=== PATIENT | male | born 1940 | race Caucasian/White ===

== ENCOUNTER 2016-11-26 12:35 | Emergency (ER) | payer MEDICARE | END 2016-11-26 17:29 | disposition home or self-care (01) | LOC: D.ER 12:35 | DX: R41.82 Altered mental status, unspecified (principal); F03.90 Unspecified dementia, unspecified severity, without behavioral disturbance, psychotic disturbance, mood disturbance, and anxiety; F17.200 Nicotine dependence, unspecified, uncomplicated ==

== ENCOUNTER 2016-11-26 18:27 | Inpatient (IN) | payer MEDICARE ==
[~2016-11-26] VITALS: Ht 175.3 cm; Wt 75.0 kg
--- NOTE | ~2016-11-26 | PN ---
PATIENT:ACE PANDYA MEDICAL RECORD: [id number] LOCATION:[facility] ADMISSION DATE: 11/26/16 PROGRESS NOTE DATE OF SERVICE: 12/07/2016 SUBJECTIVE: The patient's case was discussed with staff. He has no new complaint. OBJECTIVE: The patient is in good behavioral control with limited insight about his condition. He tolerates his medicines well. ASSESSMENT: No change in diagnoses. PLAN: Brief supportive and educational interventions were made. Prison prognosis is guarded. TRANSINT:[id number] Voice Confirmation ID: [id number] DOCUMENT ID: [id number] CLEMENTE SANCHEZ MD CC: [id number] DICTATION DATE: 12/07/16 1343 INVESTOR RELATIONS MANAGER: 12/07/16 1421 ADM IN [place] [id number] [place] [id number]
[~2016-11-26 18:27] MED LIST: ARICEPT10 MG PO; CELEXA20 MG PO; LEVAQUIN750 MG PO; MUCINEX600 MG PO; PROAIR HFA8.5 GM INH; TERAZOSIN HCL2 MG PO
--- NOTE | 2016-11-26 20:45 | NUR ---
PATIENT FAMILY HERE TO SIGNS ADMIT CONSENTS. FAMILY STATES PATIENTS IS A DNR BUT THEY DO NOT HAVE PAPERWORK WITH THEM. REQUEST A COPY FROM FAMILY.
[2016-11-26 20:50] VITALS: BP 123/77
[2016-11-26 21:17] VITALS: BP 123/77
--- NOTE | 2016-11-26 21:24 | NUR ---
RECEIVED STANDING QUIETLY AT NURSES STATION. CONFUSED. CALM AND COOPERATIVE WITH CARE AND ASSESSMENTS. NO SIGNS OF AGGRESSION. REDIRECT AND REORIENT NEEDED. CONTINUES TO REST INN BED QUIETLY AT THIS TIME. CONTINUE PLAN OF CARE
[2016-11-27 07:00] VITALS: BP 110/74
[2016-11-27 07:27] LABS: LDL-HDL RATIO 1.9 ratio (1.5-3.5); THYROID STIMULATING HORMONE 1.74 uIU/mL (0.36-3.74)
[2016-11-27 11:03] LABS: APPEARANCE CLEAR (CLEAR); BILIRUBIN NEGATIVE (NEGATIVE); COLOR YELLOW (YELLOW); GLUCOSE NEGATIVE (NEGATIVE); KETONE NEGATIVE (NEGATIVE); LEUKOCYTE ESTERASE NEGATIVE (NEGATIVE); NITRITE NEGATIVE (NEGATIVE); PROTEIN NEGATIVE (NEGATIVE); SPECIFIC GRAVITY 1.015 (1.005-1.020); UROBILINOGEN NORMAL (NORMAL)
--- NOTE | 2016-11-27 12:00 | NUR ---
ASSESSMENT COMPLETED. MEDICATION COMPLIANT. CONTINUE PLAN OF CARE.
[2016-11-27 13:59] VITALS: BMI 24.3
[2016-11-27 19:31] VITALS: BP 112/59
--- NOTE | 2016-11-27 23:22 | NUR ---
RECIEVED IN DAYROOM. SITTING IN RECLINER. SOCIALIZING WITH PEERS AND STAFF. [facility] AMBULATES. EXIT SEEKING. STATING THAT HE WANTS TO LEAVE. TAKING OFFENSIVE POSTURE AT TIMES. NO AGGRESSION NOTED AT THIS TIME. CALM AND COOPERATIVE [facility] CARE AND ASSESSMENT. REDIRECT AND REORIENT NEEDED. RESTING IN BED WITH EYES CLOSED AT THIS TIME. CONTINUE PLAN OF CARE.
[2016-11-28 07:25] LABS: VITAMIN D 25 HYDROXY 20.3 ng/mL (30.0-100.0)
[2016-11-28 08:17] LABS: FOLATE (FOLIC ACID) - SERUM 17.2 ng/mL (>3.0)
[2016-11-28 09:21] VITALS: BP 102/71
[2016-11-28 10:37] VITALS: Ht 175.3 cm; Wt 75.0 kg
[2016-11-28 11:16] LABS: RAPID PLASMA REAGIN Reactive (Non Reactive); TREPONEMA PALLIDUM AB Negative (Negative)
--- NOTE | 2016-11-28 11:44 | NUR ---
oriented to person only. pt has difficulty falling simple instruction. pt is restless and paces the unit, but he has not shown any exit seeking behaviors today. no aggression noted. medications given as ordered. fall precautions maintained. will continue to monitor and continue with plan of care.
--- NOTE | 2016-11-28 14:04 | PSY ---
PATIENT NAME:ACE PANDYA MEDICAL RECORD: [id number] : 40 LOCATION:[facility] ADMISSION DATE: 11/26/16 ACCOUNT: [id number] PSYCHIATRIC EVALUATION DATE OF EVALUATION: 11/27/16 IDENTIFYING DATA: The patient is 76 years old and he is admitted to the hospital on a voluntary basis. CHIEF COMPLAINT: Aggression. HISTORY OF PRESENT ILLNESS: The patient has an established diagnosis of dementia. He is living with his son and mxkmghok-ov-pti. He has lived with them for 10 years. He began living with them 10 years ago because he was having trouble functioning independently. Recently, he has become acutely worse. He has been very confused, unable to follow rather simple directions, and at times has even been aggressive with the family. Apparently, he has been walking around without clothing on in the house and outside in and then gets very angry when he is redirected about this. It does not appear to be anything sexual associated with it. It is just a confused man who does not understand what he is doing. PAST MEDICAL HISTORY: Significant for benign prostatic hypertrophy. PAST PSYCHIATRIC HISTORY: Significant for a long-standing cognitive decline. The patient's oqxchzjd-zb-ugn says that he was diagnosed about 2 years ago, but I do not see that he is on any anti-Alzheimer's medications. FAMILY HISTORY: Unknown. ALLERGIES: No known drug allergies. CURRENT MEDICATIONS: Include Hytrin and Celexa. SOCIAL HISTORY: The patient is . He lives with his son. He has an 8th grade education, but functioned very well and worked very hard. 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 There is no history of drug or alcohol abuse. MENTAL STATUS EXAMINATION: The patient is awake, alert, and oriented to person only. His mood is angry. His affect is constricted. Thought processes are disorganized and his memory, concentration, and abstraction abilities are at least moderately impaired. He denies that he would seek to harm himself or others and he denies psychotic symptoms. ASSETS: Supportive family members. LIABILITIES: Limited insight. 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 AXIS II: None. AXIS III: Benign prostatic hypertrophy. AXIS IV: Moderate stressors. AXIS V: Global assessment of functioning is 30. PLAN: At this time, the patient is admitted to the hospital secondary to aggressive behavior associated with a dementing illness. He will be comprehensively evaluated from both medical, psychological, and social standpoint. He will be treated with both mood stabilizing and memory enhancing medications. His long-term prognosis is guarded. TRANSINT:[id number] Voice Confirmation ID: [id number] DOCUMENT ID: [id number] CLEMENTE SANCHEZ MD at 1404 CC: [id number] DICTATION DATE: 11/27/16 140 DIE SETTER: 11/27/16 1447 ADM IN [place] [id number] [place] [id number]
[2016-11-28 20:00] VITALS: BP 113/74
--- NOTE | 2016-11-28 20:49 | NUR ---
RECEIVED IN [facility]. SITTING ON SOFA WITH PEERS AT HIS SIDE. SOCIALIZING AT TIMES. CALM AND COOPERATIVE WITH CARE AND ASSESSMENTS. NO SIGNS OF AGGRESSION. REDIRECT AND REOEINT NEEDED. SITTING IN HALLWAY WITH PEERS AT THIS TIME. CONTINUE PLAN OF CARE
[2016-11-29 09:23] VITALS: BP 111/71
--- NOTE | 2016-11-29 11:38 | NUR ---
ORIENTED TO PERSON ONLY. NO AGGRESSION NOTED. PT IS VERY CONFUSED AND REQURIES MULTIPLE ATTEMPTS WITH REDIRECTION AND EDUCATION BUT NO SIGNS OF UNDERSTANDING NOTED. MEDICATIONS GIVEN ORDERED. FALL PRECAUTIONS MAINTAINED. WILL CONTINUE TO MONITOR AND CONTINUE WITH PLAN OF CARE.
[2016-11-29 20:00] VITALS: BP 105/52
--- NOTE | 2016-11-30 02:36 | NUR ---
B) Patient is alert and oriented to self, calm and cooperative with care and assessment, ambulated independantly, I) Administered scheduled medications, redirected as needed, monitored for falls, R) Meedication compliant, resting quietly in bed now, P) Continue plan of care.
--- NOTE | 2016-11-30 07:27 | NUR ---
B) PATIENT IS AWAKE AND ALERT, HE IS CONFUSED AND FORGETS WHERE HE IS AND HOW TO DO THINGS SUCH PUTTING HIS SHIRT ON BACKWARDS, BUT HE IS PLEASANT AND WILL REDIRECT WITH ASSIST. HE AMBULATES INDEPENDENTLY, HE IS UNSTEADY, BUT HE CAN NOT GRASP THE IDEA OF HOW TO USE A WALKER, HE PICKS IT UP AND CARRIES IT. I) PROVIDE PRESCRIBED MEDS. R) PATIENT IS COMPLIANT WITH MEDS. P) CONTINUE POC.
--- NOTE | 2016-11-30 08:37 | NUR ---
PT IS VERY CONFUSED AND HAS DIFFICULTY FOLLOWING SIMPLE IMSTRUCTIONS. PT REQURIES FREQUENT REDIRECTION WITH NO EVIDENCE OF RETAINING. NO AGGRESSION NOTED. MEDICATIONS GIVEN ORDERED. FALL PRECAUTIONS MAINTAINED. WILL CONTINUE TO MONITOR AND CONTINUE WITH PLAN OF CARE.
[2016-11-30 10:41] VITALS: BP 126/67
--- NOTE | 2016-11-30 13:32 | NUR ---
RD f/u note Chart reviewed Pt noted to be confused and needs redirecting. Excelleing po intake on Regular diet. MEDS: vit d, b12. Noted to have skares above the knee, blaise 22. No changes in weights no new documenteation in BM (11/25), suspect pt has had one No changes at this time RD to follow
[2016-11-30 20:02] VITALS: BP 130/51
--- NOTE | 2016-12-01 03:40 | NUR ---
B) Patient is alert and very confused, calm and responds to redirection, restless at times. I) Administered scheduled medications, redirected as needed R) Medications compliant, early moring awake and wandering the hallway, P) Continue plan of care.
[2016-12-01 08:31] VITALS: BP 103/71
--- NOTE | 2016-12-01 08:34 | NUR ---
LATE ENTRY FROM 11/30 SW MET WITH PT'S DILANGELICA, TO DISCUSS DISEASE PROGRESSION AND DISCHARGE PLANNING. ANGELICA VERBALIZED UNDERSTANDING OF DISCUSSION.
--- NOTE | 2016-12-01 10:46 | NUR ---
ORIENTED TO PERSON ONLY. NO AGGRESSION NOTED. COOPERATIVE WITH CARE. PT DOES REQUIRES FREQUENT REDIRECTION WITH NO EVIDENCE OF RETAINING. MEDICATIONS GIVEN ORDERED. WILL CONTINUE TO MONITOR AND CONTINUE WITH PLAN OF CARE. FALL PRECAUTIONS MAINTAINED.
[2016-12-01 19:30] VITALS: BP 114/76
--- NOTE | 2016-12-02 04:12 | NUR ---
B) Patient is alert and oriented to self, very confused, quiet and keeps to himself, cooperative and calm, I) Administered scheduled medications, monitored for falls and safety, R) Medications compliant, friendly to staff, P) Continue plan of care.
[2016-12-02 08:00] VITALS: BP 110/80
--- NOTE | 2016-12-02 08:16 | NUR ---
PT CONTINUES TO HAVE SOME EXPIRATORY WHEEZING AND COUGHING WITH SOME PRODUCTIVITY. NO AGGRESSION NOTED. ORIENTED TO PERSON ONLY. PT REQUIRES FREQUENT REDIRECTION WITH NO EVIDENCE OF RETAINING. MEDICATIONS GIVEN ORDERED. FALL PRECAUTIONS MAINTAINED. WILL CONTINUE TO MONITOR AND CONTINUE WITH PLAN OF CARE.
[2016-12-02 19:30] VITALS: BP 105/56
--- NOTE | 2016-12-03 02:30 | NUR ---
B) patient alert and oriented to self, calm and cooperative with care and assessment, very confused I) Administered scheduled medicatiosn, monitored for safety and behaviors, R) Medications compliant, poor retention for information, P) Continue plan of care.
[2016-12-03 07:47] VITALS: BP 125/74
--- NOTE | 2016-12-03 13:13 | NUR ---
ORIENTED TO PERSON ONLY. NO AGGRESSION NOTED. VERY POOR STM AND REQUIRES FREQUENT REDIRECTION WITH NO EVIDENCE OF RETAINING. MEDICATIONS GIVEN ORDERED. FALL PRECAUTIONS MAINTAINED. WILL CONTINUE TO MONITOR AND CONTINUE WITH PLAN OF CARE.
[2016-12-03 19:30] VITALS: BP 137/71
--- NOTE | 2016-12-03 20:57 | NUR ---
RECEIVED IN DAYROOM. SITTING IN A CHAIR WITH PEERS AT HIS SIDE. SOCIALIZING AT TIMES. CALM AND COOPERATIVE WITH CARE AND ASSESSMENTS. NO SIGNS OF AGGRESSION. REDIRECTA ND REORIENT NEEDED. WALKING ABOUT SOCIALIZING AT THIS TIME. CONTINUE PLAN OF CARE
[2016-12-04 08:48] VITALS: BP 121/74
--- NOTE | 2016-12-04 13:34 | NUR ---
Alert and oriented to self only, No aggression. Redirect and reorient as need. Medication compliant. Sits quielty and is calm and cooperative with care. No abnormal behavior. Safety maintained. Continue with plan of care and monitoring.
[2016-12-04 19:53] VITALS: BP 131/75
--- NOTE | 2016-12-04 21:32 | NUR ---
RECEIVED IN DAYROOM. SITTING IN CHAIR WITH PEERS AT HER SIDE. SOCIALIZING WITH PEERS AT TIMES. CALM AND COOPERATIVE WITH CARE AND ASSESSMENTS. NO SIGNS OF AGGRESSION. REDIRECT AND REORIENT NEEDED. RESTING IN BED EYES CLOSED AT THIS TIME. CONTINUE PLAN OF CARE
[2016-12-05 07:00] VITALS: BP 111/72
--- NOTE | 2016-12-05 10:23 | NUR ---
B) PATIENT IS AWAKE, BUT HE IS ORIENTED TO HIS NAME ONLY, HE AMBULATES INDEPENDENTLY, HE CAN ANSWER SOME QUESTIONS, BUT MOSTLY HE USES WORD SALAD OR HE IS NONSENSICAL. I) PROVIDE PRESCRIBED MEDS. R) PATIENT IS COMPLIANT WITH MEDS AND UNIT MILIE[facility]. P) CONTINUE POC.
--- NOTE | 2016-12-05 13:38 | PN ---
PATIENT:ACE PANDYA MEDICAL RECORD: [id number] LOCATION:[facility] ADMISSION DATE: 11/26/16 PROGRESS NOTE DATE OF SERVICE: 12/01/2016 SUBJECTIVE: The patient's case was discussed with staff. He has no new complaint. OBJECTIVE: The patient is in good behavioral control with limited insight about his condition. He is severely impaired cognitively. ASSESSMENT: No change in diagnoses. PLAN: Supportive and educational interventions were made. Penitentiary prognosis is guarded. He may be transitioned out of the hospital soon if this level of improvement is maintained. TRANSINT:[id number] Voice Confirmation ID: [id number] DOCUMENT ID: [id number] CLEMENTE SANCHEZ MD at 1338 CC: [id number] DICTATION DATE: 12/01/16 1249 PREFORMING MACHINE OPERATOR: 12/01/16 1415 ADM IN [place] [id number] [place] [address]
--- NOTE | 2016-12-05 13:38 | PN ---
PATIENT:ACE PANDYA MEDICAL RECORD: [id number] LOCATION:[facility] ADMISSION DATE: 11/26/16 PROGRESS NOTE DATE OF SERVICE: 11/30/2016 SUBJECTIVE: The patient's case was discussed with staff. He has no new complaint. OBJECTIVE: The patient has limited insight about his condition. He is severely impaired cognitively and only partially oriented. ASSESSMENT: No change in diagnoses. PLAN: Current medicines have been reviewed. I am going to taper his Klonopin slightly. I do anticipate taking him off of the medicine before he is discharged. TRANSINT:[id number] Voice Confirmation ID: [id number] DOCUMENT ID: [id number] CLEMENTE SANCHEZ MD at 1338 CC: [id number] DICTATION DATE: 11/30/16 1254 CORPORATE SALES REPRESENTATIVE: 11/30/16 1308 ADM IN [place] [id number] [place] [address]
--- NOTE | 2016-12-05 13:38 | PN ---
PATIENT:ACE PANDYA MEDICAL RECORD: [id number] LOCATION:[facility] ADMISSION DATE: 11/26/16 PROGRESS NOTE DATE OF SERVICE: 11/28/2016 Psychiatric Progress Note SUBJECTIVE: The patient's case was discussed with staff. He has no new complaint. OBJECTIVE: The patient is severely impaired cognitively. He has almost no short term memory. At times, his speech seems to disintegrate into almost a totally chaotic and dysfunctional meaningless jumble. ASSESSMENT: No change in diagnoses. PLAN: The patient was tested by Dr. Sofia Lott. He scored in the severe range. I agree with this based on clinical observation of him. I am a little surprised he scored as low as he did. I did know it was going to be a very unfavorable score. It appears likely that there is very little that can be done for him other than trying to address some of his behaviors and make sure he is in a safe, secure and supportive environment. TRANSINT:[id number] Voice Confirmation ID: [id number] DOCUMENT ID: [id number] CLEMENTE SANCHEZ MD at 1338 CC: [id number] DICTATION DATE: 11/28/16 1421 CRA: 11/28/16 1836 ADM IN [place] [id number] [place] [address]
--- NOTE | 2016-12-05 13:38 | PN ---
PATIENT:ACE PANDYA MEDICAL RECORD: [id number] LOCATION:[facility] ADMISSION DATE: 11/26/16 PROGRESS NOTE DATE OF SERVICE: 11/29/2016 SUBJECTIVE: The patient's case was discussed with staff. He has no new complaint. OBJECTIVE: The patient denies intent to harm himself or others. He generally tolerates his medicines well. Eye contact is fair. ASSESSMENT: No change in diagnoses. PLAN: Supportive and educational interventions were made. Group Home prognosis is guarded. The patient clearly needs 05-aiqc-j-day supervision. TRANSINT:[id number] Voice Confirmation ID: [id number] DOCUMENT ID: [id number] CLEMENTE SANCHEZ MD at 1338 CC: [id number] DICTATION DATE: 11/29/16 1254 FABRICATION SPECIALIST: 11/29/16 1505 ADM IN [place] [id number] [place] [id number]
--- NOTE | 2016-12-05 13:38 | PN ---
PATIENT:ACE PANDYA MEDICAL RECORD: [id number] LOCATION:[facility] ADMISSION DATE: 11/26/16 PROGRESS NOTE DATE OF SERVICE: 12/04/2016 SUBJECTIVE: The patient's case was discussed with staff. He has no new complaint. OBJECTIVE: The patient is severely impaired cognitively with almost no short term memory. He is only oriented to person. ASSESSMENT: No change in diagnoses. PLAN: Supportive and educational interventions were made. I have reviewed the patient's medications and I am going to increase his Namenda to 5 mg twice daily. In addition to this, I am going to discontinue the Klonopin. He has actually settled into the schedule and routine of this facility very well. I am optimistic that the same thing will happen when he transitions to a care home, which I would anticipate him doing in a few days. TRANSINT:[id number] Voice Confirmation ID: [id number] DOCUMENT ID: [id number] CLEMENTE SANCHEZ MD at 1338 CC: [id number] DICTATION DATE: 12/04/16 1246 WAITER/WAITRESS DINING CAR: 12/04/16 1306 ADM IN [facility] [address] [place] [address]
[2016-12-05 20:01] VITALS: BP 119/62
--- NOTE | 2016-12-05 21:46 | NUR ---
RECEIVED IN DAYROOM. MOVING ABOUT AND SOCIALIZING WITH PEERS. CALM AND COOPERATIVE [facility] CARE AND ASSESSMENT. CONFUSED. NO SIGNS OF AGGRESSION. REDIRECT AND REORIENT NEEDED. RESTING IN BED WITH EYES CLOSED AT THIS TIME. CONTINUE PLAN OF CARE.
[2016-12-06 08:00] VITALS: BP 112/85
--- NOTE | 2016-12-06 14:04 | NUR ---
PT HAS BEEN PACING THE UNIT TODAY BUT HE DOES NOT EXIT SEEK. NO AGGRESSION NOTED. MEDICATIONS GIVEN ORDERED. PT HAS NO INSIGHT INTO LIMITATIONS AND REQUIRES FREQUENT REDIRECTION WITH NO EVIDENCE OF RETAINING. FALL PRECAUTIONS MAINTAINED. WILL CONTINUE TO MONITOR AND CONTINUE WITH PLAN OF CARE.
--- NOTE | 2016-12-06 14:45 | NUR ---
STONEY CALLED PT'S DILANGELICA, TO DISCUSS DISCHARGE PLANS. STONEY REPORTED PT'S MEDICAID WILL NOT GO INTO EFFECT UNTIL DECEMBER 10 AND PT COULD PAY THE DAILY RATE FOR TWO PRO RATED DAYS OR FAMILY COULD BRING PT HOME WITH 02/10 SUPERVISION. ANGELICA STATED SHE WOULD NOT COME AND PICK HIM UP TO TAKE HIM TO THE HOME ENVIRONMENT. SHE REPORTED NOT HAVING RESOURCES TO PAY THE TWO DAY STAY AT [facility]. PT NO LONGER MEETS CRITERIA TO STAY INPATIENT. STONEY OFFERED RESOURCES FOR IN HOME CARE GIVING AND ANGELICA STATED SHE WOULD NOT HAVE THE MONEY FOR THAT LEVEL OF CARE EITHER. ANGELICA STATED SHE WOULD GIVE UP POA BECAUSE SHE IS NOT GOING TO BRING PT BACK HOME. STONEY STATED SHE WOULD DISCUSS CASE WITH MONOMER PURIFICATION OPERATOR AND [facility].
--- NOTE | 2016-12-06 14:54 | NUR ---
SW WAS CONTACTED BY KAVON AND SHE STATED SHE WOULD PICK HIM UP AFTER WORK.
--- NOTE | 2016-12-06 14:57 | NUR ---
RD f/u note Chart reviewed, meds noted. pt consuming 100% usually of Regular diet. GI noted to Angela mejia , no skin issues noted. No new changes in weight. BM 12/01. No changes at this time. Plan: continue current diet, continue current plan of care. RD to continue to follow
--- NOTE | 2016-12-06 16:14 | PN ---
PATIENT:ACE PANDYA MEDICAL RECORD: [id number] LOC[facility] ADMISSION DATE: 11/26/16 PROGRESS NOTE DATE OF SERVICE: 12/05/2016 SUBJECTIVE: The patient's case was discussed with staff. He has no new complaint. OBJECTIVE: The patient is in good behavioral control with limited insight about his condition. He does tolerate his medicines well. ASSESSMENT: No change in diagnoses. PLAN: Current medicines and therapies have been reviewed and will be maintained. Long-term prognosis is guarded. TRANSINT:[id number] Voice Confirmation ID: [id number] DOCUMENT ID: [id number] CLEMENTE SANCHEZ MD at 1614 CC: [id number] DICTATION DATE: 12/05/16 1350 MOLD RUNNER: 12/05/16 1638 ADM IN [place] [id number] [place] [address]
[2016-12-06] MEDS ORDERED: NAMENDA5 MG PO (16:47)
[2016-12-06] MEDS ORDERED: VITAMIN D5000 UNIT PO (16:47)
[2016-12-06] MEDS ORDERED: VITAMIN B-121000 MCG PO (16:48)
[2016-12-06 20:51] VITALS: BP 121/70
--- NOTE | 2016-12-06 22:07 | NUR ---
RECEIVED IN BEDROOM. RESTING WITH EYES OPEN. VERY CONFUSED. CALM AND COOPERATIVE WITH CARE AND ASSESSMENT. NO SIGNS OF AGGRESSION. TOOK PM MEDS ORDERED. REDIRECT AND REORIENT NEEDED. ENCOURAGE TO EXPRESS NEEDS. CONTINUES TO REST IN BED WITH EYES CLOSED. CONTINUE PLAN OF CARE.
[2016-12-07 08:00] VITALS: BP 116/71
--- NOTE | 2016-12-07 12:00 | NUR ---
B) PATIENT IS AWAKE AND ALERT, HE IS ORIENTED TO SELF ONLY, HE IS A JOKER AND HE TRIES TO MAKE JOKES WHEN HE DOES NOT UNDERSTAND. PATIENT AMBULATES INDEPENDENTLY. I) PROVIDE PRESCRIBED MEDS. R) PATIENT IS COMPLIANT WITH MEDS AND UNIT MILIEU. P) CONTINUE POC.
--- NOTE | 2016-12-07 13:28 | PN ---
PATIENT:ACE PANDYA MEDICAL RECORD: [id number] LOCATION:[facility] ADMISSION DATE: 11/26/16 PROGRESS NOTE DATE OF SERVICE: 12/06/2016 Psychiatric Progress Note SUBJECTIVE: The patient's case was discussed with staff. He has no new complaint. OBJECTIVE: The patient is in good behavioral control, but has severe cognitive impairment. He has not been aggressive. He is eating and sleeping well. ASSESSMENT: No change in diagnoses. PLAN: This is a very unfortunate situation. The patient has an advanced dementia, but no evidence of acute or direct dangerousness. He is going to do things that are consistent with that dementia and I think the family has made a reasonable decision to put him in a dementia unit at a longterm where he will receive appropriate supervision and care. His snf prognosis is exceedingly poor. His disease will only worsen with time. He has progressed to the point where he has really no insight about his impairment, which is a sign of an advanced disease, but also something that reduces the amount of internal distress he experiences. TRANSINT:[id number] Voice Confirmation ID: [id number] DOCUMENT ID: [id number] CLEMENTE SANCHEZ MD at 1328 CC: [id number] DICTATION DATE: 12/06/16 1650 DRILLING MACHINE RUNNER: 12/06/16 2101 ADM IN [place] [id number] [place] [address]
--- NOTE | 2016-12-07 15:05 | NUR ---
PATIENT D/C'D WITH THE CONSTRUCTION WORKER FROM [facility], ALL BELONGINGS ACCOUNTED FOR AND PACKED, HARD COPIES OF MEDS AND ORDERS GIVEN TO THE CONSTRUCTION WORKER. PATIENT IS NOW D/C'D FROM THE UNIT.
== END 2016-12-07 15:30 | DRG 57 ==
LOC: D.PSYCH 18:27
PROVIDERS: ADMIT Psychiatry & Neurology Psychiatry
DX: G30.1 Alzheimer's disease with late onset (principal); F02.81 Dementia in other diseases classified elsewhere, unspecified severity, with behavioral disturbance; N40.0 Benign prostatic hyperplasia without lower urinary tract symptoms; I10 Essential (primary) hypertension; F41.9 Anxiety disorder, unspecified; I25.10 Atherosclerotic heart disease of native coronary artery without angina pectoris; Z95.5 Presence of coronary angioplasty implant and graft; E55.9 Vitamin D deficiency, unspecified; G89.4 Chronic pain syndrome; R26.81 Unsteadiness on feet; Z91.81 History of falling

== ENCOUNTER 2017-09-30 17:25 | Emergency (ER) | payer MEDICARE ==
[~2017-09-30] VITALS: Ht 175.3 cm; Wt 77.3 kg
[~2017-09-30 17:25] MED LIST changes: +NAMENDA5 MG PO; +VITAMIN B-121000 MCG PO; +VITAMIN D5000 UNIT PO
[2017-09-30 17:31] VITALS: Ht 175.3 cm; Wt 77.3 kg
[2017-09-30 19:11] VITALS: BP 132/86
== END 2017-09-30 19:12 | disposition home or self-care (01) ==
LOC: D.ER 17:25
DX: M54.5 Low back pain (principal); W19.XXXA Unspecified fall, initial encounter; Y93.89 Activity, other specified; Y92.019 Unspecified place in single-family (private) house as the place of occurrence of the external cause; I10 Essential (primary) hypertension; F03.90 Unspecified dementia, unspecified severity, without behavioral disturbance, psychotic disturbance, mood disturbance, and anxiety